=== PATIENT | female | born 1950 | race Caucasian/White ===

== ENCOUNTER → 2017-12-14 | Outpatient (REF) | payer MEDICARE ==
[2017-12-14 13:15] LABS: ANION GAP 9 MEQ/L (8-16); BLOOD UREA NITROGEN 57 MG/DL (7-18); CALCIUM LEVEL 9.1 MG/DL (8.8-10.2); CARBON DIOXIDE LEVEL 19 MEQ/L (21-32); CHLORIDE LEVEL 111 MEQ/L (98-107); GLOMERULAR FILTRATION RATE 12.3 (>45); GLUCOSE, FASTING 124 MG/DL (70-100); SODIUM LEVEL 139 MEQ/L (136-145)
[2017-12-14 13:16] LABS: POTASSIUM SERUM 5.8 MEQ/L (3.5-5.1)
== END ==
LOC: M LABDRAW1 11:47
DX: N18.5 Chronic kidney disease, stage 5 (principal); I12.0 Hypertensive chronic kidney disease with stage 5 chronic kidney disease or end stage renal disease; E21.1 Secondary hyperparathyroidism, not elsewhere classified; E66.9 Obesity, unspecified; G47.33 Obstructive sleep apnea (adult) (pediatric); D63.1 Anemia in chronic kidney disease; E87.2 Acidosis; E87.5 Hyperkalemia
CPT/HCPCS: 80048